=== PATIENT | male | born 1970 | race Hispanic/Latino ===

== ENCOUNTER → 2018-04-17 | Outpatient (CLI) | payer BC | END | disposition home or self-care (01) | LOC: RAH 14:12 | PROVIDERS: ATTEND Internal Medicine Cardiovascular Disease | CPT/HCPCS: 71046; 78580; A9540 ==

== ENCOUNTER 2018-11-17 05:42 | Emergency (ER) | payer BC ==
[2018-11-17] MEDS ORDERED: ASPIRIN 325 MG TABLET ONE (06:27)
[2018-11-17 06:28] LABS: BASOPHILS % (AUTO) 1.1 % (0.0-5.0); EOSINOPHILS % (AUTO) 3.2 % (0.0-8.0); HEMATOCRIT 45.3 % (42-54); LYMPHOCYTES % (AUTO) 42.1 % (21.0-51.0); MEAN CORPUSCULAR HEMOGLOBIN 32.9 pg (27.0-33.0); MEAN CORPUSCULAR HGB CONC 34.4 g/dL (32.0-36.0); MEAN CORPUSCULAR VOLUME 95.7 fL (79-99); NEUTROPHILS % (AUTO) 45.6 % (40.0-77.0); PLATELET COUNT (AUTO) 222 K/uL (130-400); RED BLOOD CELL COUNT(AUTO) 4.73 MIL/uL (4.50-6.20); WHITE BLOOD COUNT (AUTO) 5.3 K/uL (4.8-10.8)
[2018-11-17 06:29] LABS: CREATININE 1.2 mg/dL (0.5-1.5); POTASSIUM 3.7 mmol/L (3.5-5.1)
[2018-11-17 06:30] LABS: INR 1.02 (0.85-1.15); PARTIAL THROMBOPLASTIN TIME 27.5 SEC (26.3-35.5); PROTHROMBIN TIME 10.7 SEC (9.6-11.6)
[2018-11-17 06:37] LABS: ALBUMIN 3.8 g/dL (3.5-5.0); BILIRUBIN,TOTAL 0.6 mg/dL (0.2-1.0); TOTAL PROTEIN, SERUM 7.2 g/dL (6.0-8.3)
== END 2018-11-17 08:05 | disposition home or self-care (01) ==
LOC: EDH 05:42
DX: R07.89 Other chest pain (principal); I48.91 Unspecified atrial fibrillation; M54.2 Cervicalgia; R51 Headache; Z98.890 Other specified postprocedural states; Z98.52 Vasectomy status
CPT/HCPCS: 36415; 71045; 80053; 82550; 83605; 83690; 83880; 84484; 85025; 85610; 85730; 93005

== ENCOUNTER 2025-02-20 06:30 | Day surgery (SDC) | payer OTHER ==
[2025-02-17 10:34] LABS: IMMATURE GRANULOCYTE ABSOLUTE 0.02 K/uL (0-1); NUCLEATED RED BLOOD CELLS 0.0 % (0.0-0.19); PLATELET COUNT (AUTO) 208 K/uL (130-400); RED BLOOD CELL COUNT(AUTO) 4.85 MIL/uL (4.50-6.20); RED CELL DISTRIBUTION WIDTH 13.1 % (11.0-15.5); WHITE BLOOD COUNT (AUTO) 5.0 K/uL (4.8-10.8)
[2025-02-17 10:41] VITALS: BP 127/72; PULSE 71; RESP 18; TEMP 97
[2025-02-17 10:48] LABS: CREATININE 1.3 mg/dL (0.5-1.3); GLOMERULAR FILTR. RATE CALC 65.0 mL/min (>90); GLUCOSE,RANDOM 106.0 mg/dL (70-105); SODIUM SERUM 140.0 mmol/L (136-145); UREA NITROGEN, BLOOD 12.0 mg/dL (7-18)
[~2025-02-20] VITALS: Ht 190.5 cm; Wt 121.1 kg
[2025-02-20] VITALS (16 sets, daily range): BP systolic 109–134; BP diastolic 68–87; PULSE 69–70; RESP 12–18; TEMP 97–97.7
[~2025-02-20 06:30] MED LIST: BETH25 PO; LACTATED RINGERS 1000ML 1,000 ML IV ONE; RANO500T6 PO; ROSU5TAB51 PO; TADA5TAB PO; TAMS-55 PO
[2025-02-20] MEDS ORDERED: LIDOCAINE PF 100MG/5ML (2%) SYRINGE 5ML ONE (07:19)
[2025-02-20] MEDS ORDERED: SUCCINYLCHOLINE CHLORIDE 20 MG/ML 10 ML VIAL ONE (07:20)
[2025-02-20] MEDS ORDERED: GLYCOPYRROLATE 0.2 MG/ML 5 ML VIAL ONE (07:20)
[2025-02-20] MEDS ORDERED: NEOSTIGMINE METHYLSULFATE 1MG/ML IV ONE (07:21)
[2025-02-20] MEDS ORDERED: MIDAZOLAM HCL 1 MG/ML 2ML VIAL ONE (07:24)
[2025-02-20] MEDS ORDERED: SUGAMMADEX SODIUM 200 MG/2 ML VIAL IV ONE (07:36)
[2025-02-20] MEDS ORDERED: FAMOTIDINE 20MG VIAL IV ONE (07:38)
[2025-02-20] MEDS ORDERED: ACET-2079 PO (09:40)
--- NOTE | 2025-02-20 09:52 | OP ---
Operative Note: DATE OF PROCEDURE: 02/20/25 SURGEON: BJ TANNER MD [facility]HE OPERATOR: [Corey Limon CFA] ANESTHESIA: [General anesthesia] ANESTHESIOLOGIST/PROPERTY SITE MANAGER: [Jameson Blas CRNA] PREOPERATIVE DIAGNOSIS: [Right knee medial meniscal tear posterior horn] POSTOPERATIVE DIAGNOSIS: [Complex tear posterior horn medial meniscus, patellofemoral chondromalacia grade 3 ] PROCEDURE: [Right knee arthroscopic partial medial meniscectomy, femoral trochlear chondroplasty] ESTIMATED BLOOD LOSS: [Less than five mL] INDICATIONS: [The patient is a 54-year-old male that sustained an injury at work that resulted in the above-mentioned injury. The patient is brought to the operating room for an arthroscopic procedure after failing conservative treatment. The patient understood the need for the procedure, risks, benefits and possible complications and agreed to sign the consent form] DESCRIPTION OF PROCEDURE: [After adequate general anesthesia was achieved the patient's right lower extremity was prepped and draped in the usual manner previous placement of the tourniquet in the proximal thigh. The extremity was elevated and exsanguinated with an Esmarch band and the tourniquet was inflated to 300 mmHg, the Esmarch band been then removed. The leg was brought to the side of the bed with the knee in 90 degrees of flexion and 2 small incisions were made medial and lateral to the patella tendon at the joint line level through the skin followed by blunt dissection with a trocar penetrating into the joint. Through the lateral portal the arthroscopic cannula was inserted and then after the cannula was removed the scope was inserted in the sheath bringing the knee on the table in extension placing the scope in the suprapatellar area which was noted to be normal with a normal quadriceps tendon. The patellofemoral joint revealed the presence of grade 3 chondromalacia involving the patella surface and the femoral trochlea the latter requiring a small debridement to remove loose tissue. The knee was then brought into flexion on the side of the bed and the scope follow into the medial compartment where after valgus stress was done we were able to visualize the medial compartment and a tear of the posterior horn of the meniscus with a horizontal and radial pattern extending into the body. The meniscus was unstable. With the use of the meniscal shaver as well as trimmers we proceeded to remove the torn tissue leaving hook stable tissue removing all the debris. We then proceeded to bring the scope to the intercondylar notch noticing that the ACL and PCL were normal and then with a [id number] position of the knee we were able to visualize the lateral compartment which show normal characteristics of the meniscus and the articular surface. The arthroscope was then removed from the joint as well as the fluid and we then proceeded to close the incisions with #3-0 nylon simple stitches. A soft dressing was applied to cover the small incisions followed by application of an Lonnie bandage. The drapes were then removed after the tourniquet was deflated and the patient was transferred to the stretcher and then taken to recovery room for follow-up by anesthesia. There were no complications during the procedure.] BJ TANNER MD Feb 20, 2025 09:51
--- NOTE | 2025-02-20 11:19 | NUR ---
Full and complete discharge instructions given to Patient and Family both verbally and in writing. Tolerated fluids and voided in bathroom. PIV removed with catheter tip intact. Dressing to surgical site clean and dry. Patient demostrated good technique to crutch use. Patient denies any pain or discomfort. W/C to POV with Family to home.
== END 2025-02-20 11:15 | disposition home or self-care (01) ==
LOC: DAH 06:30
PROVIDERS: ATTEND Orthopaedic Surgery
DX: S83.231A Complex tear of medial meniscus, current injury, right knee, initial encounter (principal); M22.41 Chondromalacia patellae, right knee; E78.00 Pure hypercholesterolemia, unspecified; Z79.899 Other long term (current) drug therapy; X58.XXXA Exposure to other specified factors, initial encounter; Y93.64 Activity, baseball; Y92.89 Other specified places as the place of occurrence of the external cause; Y99.8 Other external cause status
CPT/HCPCS: 80048; 85025; 36415; 29881; A4223 ×2; A4663; J7120 ×2; A4649 ×2; J0690 ×3; J1308; J3010 ×2; J1100; J0330; J3490 ×3; J2003; J2250; J2704; J2405; J1885; J2710; A6223; A5120; A4215; A4213; A4222; A4221; A4216; A6450